=== PATIENT | female | born 1940 | race Caucasian/White ===

== ENCOUNTER → 2019-11-26 11:02 | Outpatient (CLI) | payer MEDICARE, SELFPAY ==
[2019-11-30 11:42] LABS: Occult Blood,Stool Negative (Negative)
== END ==
PROVIDERS: Visit Provider Internal Medicine Gastroenterology
DX: D64.9 Anemia, unspecified (principal)
CPT/HCPCS: 82272; G0328

== ENCOUNTER → 2019-11-27 11:05 | Outpatient (CLI) | payer MEDICARE, SELFPAY ==
[2019-11-30 11:42] LABS: Occult Blood,Stool Negative (Negative)
== END ==
PROVIDERS: Visit Provider Internal Medicine Gastroenterology
DX: D64.9 Anemia, unspecified (principal)
CPT/HCPCS: 82272; G0328

== ENCOUNTER → 2019-11-29 11:07 | Outpatient (CLI) | payer MEDICARE, SELFPAY ==
[2019-11-30 11:43] LABS: Occult Blood,Stool Negative (Negative)
== END ==
PROVIDERS: Visit Provider Internal Medicine Gastroenterology
DX: D64.9 Anemia, unspecified (principal)
CPT/HCPCS: 82272; G0328